=== PATIENT | female | born 1980 | race Caucasian/White ===

== ENCOUNTER 2016-10-27 17:22 | Emergency (ER) | payer BC, OTHER ==
[~2016-10-27] VITALS: Ht 170.2 cm; Wt 90.7 kg
[~2016-10-27 17:22] MED LIST: ACET-1256 PO; ALLO1TAB51 PO; CHOL100010 PO; MERC50TA9 PO; MRC50 PO; MTR600X PO; OXYC5TAB PO; PREN1TAB51 PO; RMCI IV
[2016-10-27 17:26] VITALS: TEMP 37.4; Ht 170.2 cm; Wt 90.7 kg
[2016-10-27] MEDS ORDERED: CEFTRIAXONE SOD INJ 1 GM ADDVIAL IV STA (17:34)
[2016-10-27] MEDS ORDERED: SODIUM CHLORIDE 0.9% 1000ML 1,000 ML IV STA (17:34)
[2016-10-27] MEDS ORDERED: KETOROLAC TROMETHAMINE 30 MG/ML VIAL IV STA (17:34)
[2016-10-27] MEDS ORDERED: ONDANSETRON INJ 2 MG/ML 2 ML VIAL IV STA (17:34)
[2016-10-27 17:48] LABS: BASO % 0.1 %; BASO ABS # 0.01 K/uL (0-0.2); COMPLETE YES; EOS % 0.4 %; HEMATOCRIT 36.5 % (37-47); IG% 0.5 %; LYMPH % 9.7 %; LYMPH ABS # 1.38 K/uL (1.2-3.4); MEAN CELL VOLUME 88.4 fL (80-100); MEAN CORPUSCULAR HEMOGLOBIN 29.5 pg (25-34); MEAN CORPUSCULAR HGB CONC 33.4 g/dl (32-36); MEAN PLATELET VOLUME 9.2 fL (7.4-10.4); MONO % 11.3 %; PLATELET COUNT 251 K/uL (130-400); RED BLOOD COUNT 4.13 M/uL (4.2-5.4); WHITE BLOOD COUNT 14.19 K/uL (4.8-10.8)
[2016-10-27] MEDS ORDERED: MRC50 PO (17:48)
[2016-10-27] MEDS ORDERED: ALLO100T PO (17:48)
[2016-10-27] MEDS ORDERED: MULT-506 PO (17:49)
[2016-10-27 18:01] LABS: URINE APPEARANCE CLEAR (CLEAR); URINE BILIRUBIN NEG (NEG); URINE COLOR YELLOW; URINE EPITHELIAL CELL AUTO 0-5 /lpf (0-5); URINE NITRITE POS (NEG); URINE PH 6.5 (4.5-7.5); URINE SPECIFIC GRAVITY 1.013 (1.000-1.030); UROBILINOGEN NEG (NEG); ZZUR CULT IF INDIC CLEAN CATCH YES
[2016-10-27 18:04] LABS: MANUAL MICROSCOPIC REQUIRED? NO; REVIEW REQ? NO
[2016-10-27 18:10] LABS: BUN/CREATININE RATIO 15.6 (10-20); CALCIUM 8.7 mg/dl (8.5-10.1); CREATININE 0.68 mg/dl (0.60-1.20); POTASSIUM 3.8 mmol/L (3.5-5.1)
--- NOTE | 2016-10-27 18:15 | DIAGNOSTIC IMAGING REPORT ---
CT OF THE ABDOMEN AND PELVIS WITHOUT CONTRAST, STONE PROTOCOL CLINICAL HISTORY: Left flank pain. COMPARISON STUDY: CT of the abdomen and pelvis November 27, 2014. TECHNIQUE: Helical axial images of the abdomen and pelvis were obtained without IV or oral contrast according to renal stone protocol. FINDINGS: Lung bases are clear. There is no biliary ductal dilatation status post cholecystectomy. 2 left renal calculi measure up to 2 mm. There are no ureteral calculi. There is no hydronephrosis or hydroureter. Note is made of moderate wall thickening of the bladder with adjacent infiltration. Evaluation of the abdomen and pelvis is suboptimal on this unenhanced exam. Unenhanced images of the liver, spleen, adrenal glands and pancreas are normal. There is no evidence for a bowel obstruction. There are few prominent ileocolic lymph nodes. 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 IMPRESSION: 1. Punctate left renal calculi. No ureteral calculi or hydronephrosis. 2. Wall thickening of the bladder with adjacent infiltration which suggests cystitis. Electronically signed by: Darryl Cooley M.D. 10/27/2016 6:14 PM Dictated Date/Time: 10/27/2016 6:05 PM
[2016-10-27] MEDS ORDERED: NITROFURANTOIN MONOHYDRATE 100 MG CAP PO STA (18:35)
[2016-10-27] MEDS ORDERED: NITR-5 PO (18:39)
[2016-10-27] MEDS ORDERED: ONDA4TAB10 SL (18:39)
--- NOTE | 2016-10-27 18:40 | EMERGENCY ROOM VISIT NOTE ---
History Report prepared by Lashawn: Kassidy Wild Under the Supervision of: Dr. Miky Monique D.O. First contact with patient: 17:28 Chief Complaint: FLANK PAIN Stated Complaint: LF SIDE PAIN,URGENCY TO URINATE,NAUSEA History of Present Illness The patient is a 36 year old female who presents to the Emergency Room with complaints of an intermittent left flank pain for the past 3 days, which has been constant today. Three days ago she began experiencing increased urinary frequency and urgency. The patient reports a history of kidney stones and states that these symptoms felt similar to her previous stones. She increased her fluid intake to help her symptoms. Starting this morning, the pain worsened and started to radiate to her back. She has been experiencing nausea and had 1 episode of vomiting. She states that vomiting helped to alleviate her pain. She rates her pain as a 5/10 in severity. The patient denies any fever or abnormal vaginal discharge. Her LNMP was two weeks ago. Source of History: patient Onset: three days ago Position: other (left flank) Symptom Intensity: 5/10 Quality: other (radiating) Timing: intermittent, worsening Modifying Factors (Relieving): other (vomiting) Associated Symptoms: + abdominal pain, + back pain, + nausea, + urinary symptoms, + vomiting, No fevers Note: Patient denies any abnormal vaginal discharge. Review of Systems See HPI for pertinent positives & negatives. A total of 10 systems reviewed and were otherwise negative. Past Medical & Surgical Medical Problems: (1) Kidney stone (2) (3) Ulcerative colitis Surgical Problems: (1) H/O section (2) Hx of cholecystectomy Family History FH: HTN (hypertension) FH: diabetes mellitus FH: gallbladder disease Kidney stone Social History Smoking Status: Never Smoker Marital Status: Housing Status: lives with family Occupation Status: employed Current/Historical Medications Scheduled Allopurinol (Zyloprim), 100 MG PO QAM Infliximab (Remicade), 100 MG IV Q8 WEEKS Mercaptopurine (Mercaptopurine), 25 MG PO Q2D IN AM Mercaptopurine (Mercaptopurine), 50 MG PO Q2D IN AM Multivitamin (Multivitamin), 1 TAB PO QAM Nitrofurantoin Monohyd Macrocr (Macrobid), 100 MG PO BID Ondasetron Odt (Zofran Odt), 4 MG SL Q6H Scheduled PRN Acetaminophen (Tylenol), 1,000 MG PO UD PRN for RN Allergies Coded Allergies: Sulfa Antibiotics (Verified Allergy, Severe, ONTIVEROS VIDAL WITH SULFASALAZINE, 10/27/16) Sulfasalazine (Verified Allergy, Severe, ONTIVEROS-VIDAL SYNDROME., 10/27/16 ) Mesalamine (Verified Allergy, Intermediate, FLU LIKE SYMPTOMS/NAUSEA AND VOMITING, 10/27/16) Physical Exam Vital Signs Date Time Temp Pulse Resp B/P Pulse Ox O2 Delivery O2 Flow Rate FiO2 10/27/16 18:55 107 16 112/77 97 Room Air 10/27/16 17:26 37.4 128 18 128/85 96 Room Air Physical Exam CONSTITUTIONAL/VITAL SIGNS: Reviewed / noted above. GENERAL: Non-toxic in appearance. INTEGUMENTARY: Warm, dry, and [place]. HEAD: Normocephalic. EYES: without scleral icterus or trauma. ENT/OROPHARYNX: clear and moist. LYMPHADENOPATHY/NECK: Is supple without lymphadenopathy or meningismus. RESPIRATORY: Lungs clear and equal. CARDIOVASCULAR: Regular rate and rhythm. GI/ABDOMEN: Soft and nontender. No organomegaly or pulsatile mass. No rebound or guarding. Normal bowel sounds. EXTREMITIES: Warm and well perfused. BACK: Left CVA tenderness. NEUROLOGICAL: Intact without focal deficits. PSYCHIATRIC: normal affect. MUSCULOSKELETAL: Normally developed with good muscle tone. Medical Decision & Procedures ER Provider Diagnostic Interpretation: Radiology results as stated below per my review and radiologist interpretation: CT OF THE ABDOMEN AND PELVIS WITHOUT CONTRAST, STONE PROTOCOL CLINICAL HISTORY: Left flank pain. COMPARISON STUDY: CT of the abdomen and pelvis November 27, 2014. TECHNIQUE: Helical axial images of the abdomen and pelvis were obtained without IV or oral contrast according to renal stone protocol. FINDINGS: Lung bases are clear. There is no biliary ductal dilatation status post cholecystectomy. 2 left renal calculi measure up to 2 mm. There are no ureteral calculi. There is no hydronephrosis or hydroureter. Note is made of moderate wall thickening of the bladder with adjacent infiltration. Evaluation of the abdomen and pelvis is suboptimal on this unenhanced exam. Unenhanced images of the liver, spleen, adrenal glands and pancreas are normal. There is no evidence for a bowel obstruction. There are few prominent ileocolic lymph nodes. 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 IMPRESSION: 1. Punctate left renal calculi. No ureteral calculi or hydronephrosis. 2. Wall thickening of the bladder with adjacent infiltration which suggests cystitis. Electronically signed by: Darryl Cooley M.D. 10/27/2016 6:14 PM Dictated Date/Time: 10/27/2016 6:05 PM Laboratory Results 10/27/16 17:40 Red Blood Count 4.13, Mean Corpuscular Volume 88.4, Mean Corpuscular Hemoglobin 29.5, Mean Corpuscular Hemoglobin Concent 33.4, Mean Platelet Volume 9.2, Neutrophils (%) (Auto) 78.0, Lymphocytes (%) (Auto) 9.7, Monocytes (%) (Auto) 11.3, Eosinophils (%) (Auto) 0.4, Basophils (%) (Auto) 0.1, Neutrophils # (Auto ) 11.07, Lymphocytes # (Auto) 1.38, Monocytes # (Auto) 1.60, Eosinophils # (Auto ) 0.06, Basophils # (Auto) 0.01 10/27/16 17:40 Test 10/27/16 17:35 10/27/16 17:40 Urine Color YELLOW Urine Appearance CLEAR (CLEAR) Urine pH 6.5 (4.5-7.5) Urine Specific [place] 1.013 (1.000-1.030) Urine Protein NEG (NEG) Urine Glucose (UA) NEG (NEG) Urine Ketones NEG (NEG) Urine Occult Blood 2+ (NEG) Urine Nitrite POS (NEG) Urine Bilirubin NEG (NEG) Urine Urobilinogen NEG (NEG) Urine Leukocyte Esterase MODERATE (NEG) Urine WBC (Auto) >30 /hpf (0-5) Urine RBC (Auto) 5-10 /hpf (0-4) Urine Hyaline Casts (Auto) 5-10 /lpf (0-5) Urine Epithelial Cells (Auto) 0-5 /lpf (0-5) Urine Bacteria (Auto) 4+ (NEG) White Blood Count 14.19 K/uL (4.8-10.8) Red Blood Count 4.13 M/uL (4.2-5.4) Hemoglobin 12.2 g/dL (12.0-16.0) Hematocrit 36.5 % (37-47) Mean Corpuscular Volume 88.4 fL (80-100) Mean Corpuscular Hemoglobin 29.5 pg (25-34) Mean Corpuscular Hemoglobin Concent 33.4 g/dl (32-36) Platelet Count 251 K/uL (130-400) Mean Platelet Volume 9.2 fL (7.4-10.4) Neutrophils (%) (Auto) 78.0 % Lymphocytes (%) (Auto) 9.7 % Monocytes (%) (Auto) 11.3 % Eosinophils (%) (Auto) 0.4 % Basophils (%) (Auto) 0.1 % Neutrophils # (Auto) 11.07 K/uL (1.4-6.5) Lymphocytes # (Auto) 1.38 K/uL (1.2-3.4) Monocytes # (Auto) 1.60 K/uL (0.11-0.59) Eosinophils # (Auto) 0.06 K/uL (0-0.5) Basophils # (Auto) 0.01 K/uL (0-0.2) RDW Standard Deviation 45.7 fL (36.4-46.3) RDW Coefficient of Variation 14.2 % (11.5-14.5) Immature Granulocyte % (Auto) 0.5 % Immature Granulocyte # (Auto) 0.07 K/uL (0.00-0.02) Anion Gap 9.0 mmol/L (3-11) Est Creatinine Clear Calc Drug Dose 134.8 ml/min Estimated GFR () 132.3 Estimated GFR (Non- 114.1 BUN/Creatinine Ratio 15.6 (10-20) Calcium Level 8.7 mg/dl (8.5-10.1) Total Bilirubin 0.4 mg/dl (0.2-1) Direct Bilirubin 0.1 mg/dl (0-0.2) Aspartate Amino Transf (AST/SGOT) 23 U/L (15-37) Alanine Aminotransferase (ALT/SGPT) 28 U/L (12-78) Alkaline Phosphatase 53 U/L (45-117) Total Protein 8.1 gm/dl (6.4-8.2) Albumin 3.6 gm/dl (3.4-5.0) Lipase 168 U/L (73-393) Laboratory results as stated above per my review. Medications Administered Medications (Trade) Dose Ordered Sig/[place] Route Start Time Stop Time Status Last Admin Dose Admin Sodium Chloride (Nss 1000ml) 1,000 ml @ 999 mls/hr Q1H1M STAT IV 10/27/16 17:34 10/27/16 18:34 DC 10/27/16 17:34 999 MLS/HR Ondansetron HCl (Zofran Inj) 4 mg NOW STAT IV 10/27/16 17:34 10/27/16 17:36 DC 10/27/16 17:43 4 MG Ketorolac Tromethamine (Toradol Inj) 30 mg NOW STAT IV 10/27/16 17:34 10/27/16 17:36 DC 10/27/16 17:43 30 MG Ceftriaxone Sodium (Rocephin Inj) 1 gm NOW STAT IV 10/27/16 17:34 10/27/16 17:36 DC 10/27/16 17:43 1 GM Nitrofurantoin Macrocrystals (Macrobid Cap) 100 mg NOW STAT PO 10/27/16 18:35 10/27/16 18:36 DC 10/27/16 18:46 100 MG ED Course 1731: Previous medical records were reviewed. The patient was evaluated in room B3B. A complete history and physical examination was performed. 1734: Rocephin 1 gm IV, Toradol 30 mg IV, Zofran 4 mg IV, NSS 1000 @ 999 mls/hr IV. 1831: I reassessed the patient at this time. She is feeling better and resting comfortably. I discussed the results and treatment plan with the patient. I answered all pertaining questions that she had. She expressed understanding and verbalized agreement. The patient will be discharged home. 1835: Macrobid 100 mg PO. Medical Decision Differential considered: pancreatitis, hepatitis, or acute cholecystitis, AAA, UTI, pyelonephritis, kidney stones, appendicitis, diverticulitis, shingles, bowel obstruction mesenteric ischemia, intussusception,hernia, ovarian torsion, ruptured ovarian cyst,ectopic , . This is a 36-year-old female who presents to the ED with a chief complaint of left flank pain. The patient's symptoms initially started 3 days ago with frequency and urgency. She developed left flank pain today as well as some nausea and vomited once. The patient's last menstrual periods was 2 weeks ago. She denies any fevers. Her vital signs revealed tachycardia. Physical exam reveals some left CVA tenderness. CT scan reveals findings suggesting cystitis. Urine shows infection. White blood count was 14. CMP was normal. The patient was treated with IV Rocephin, 1 L of normal saline IV, IV Zofran and by mouth Macrobid. She was discharged on Macrobid and Zofran. She was told to return for vomiting or other concerns. Impression Primary Impression: UTI (urinary tract infection) Additional Impression: Pyelonephritis Scribe Attestation The scribe's documentation has been prepared under my direction and personally reviewed by me in its entirety. I confirm that the note above accurately reflects all work, treatment, procedures, and medical decision making performed by me. Departure Information Dispostion Home / Self-Care Prescriptions Nitrofurantoin Monohyd Macrocr (Macrobid) 100 Mg Cap 100 MG PO BID, #14 CAP Prov: Miky Monique D.O. 10/27/16 Ondasetron Odt (ZOFRAN ODT) 4 Mg Tab 4 MG SL Q6H for Nausea, #15 TAB Prov: Miky Monique D.O. 10/27/16 Referrals Eva Barrera D.O. (PCP) Forms HOME CARE DOCUMENTATION FORM, IMPORTANT VISIT INFORMATION Patient Instructions [facility], Pyelonephritis - [facility] Additional Instructions Macrobid as prescribed. Zofran: Allow one tablet to dissolve under the tongue every 6 hours as needed for nausea or vomiting. Follow-up with your doctor for further care and evaluation in 1-2 days. Return to the emergency department for worsening or new symptoms or any concerns. You have been examined and treated today on an emergency basis only. This is not a substitute for, or an effort to provide, complete comprehensive medical care. It is impossible to recognize and treat all injuries or illnesses in a single emergency department visit. It is therefore important that you follow up closely with your doctor. Call as soon as possible for an appointment. Problem Qualifiers Primary Impression: UTI (urinary tract infection) Urinary tract infection type: site unspecified Hematuria presence: with hematuria Qualified Codes: N39.0 - Urinary tract infection, site not specified ; R31.9 - Hematuria, unspecified
[2016-10-27 18:55] VITALS: BP 112/77; PULSE 107; O2SAT 97
== END 2016-10-27 18:56 | disposition home or self-care (01) ==
LOC: C.EDB 17:22
DX: N39.0 Urinary tract infection, site not specified (principal); Z87.442 Personal history of urinary calculi; Z90.49 Acquired absence of other specified parts of digestive tract; Z82.49 Family history of ischemic heart disease and other diseases of the circulatory system; Z83.3 Family history of diabetes mellitus; Z79.899 Other long term (current) drug therapy

== ENCOUNTER → 2017-01-14 | Outpatient (CLI) | payer BC ==
[~2017-01-14] MED LIST changes: +ALLO100T PO; -ALLO1TAB51 PO; -CHOL100010 PO; -MERC50TA9 PO; -MTR600X PO; +MULT-506 PO; +NITR-5 PO; +ONDA4TAB10 SL; -OXYC5TAB PO; -PREN1TAB51 PO
--- NOTE | 2017-01-14 08:19 | DIAGNOSTIC IMAGING REPORT ---
THYROID ULTRASOUND HISTORY: Nodule LOCALIZED Swelling, mass AND Lump, neck COMPARISON: None. FINDINGS: 1.5 x 1.0 cm mixed echogenicity partially calcified nodule posterior to the right ear. This is nonspecific in appearance. IMPRESSION: Partially calcified nodule posterior to the right ear measuring 1.5 x 1.0 cm. The appearance is nonspecific. Electronically signed by: Jay Dailey M.D. 01/14/2017 8:17 AM Dictated Date/Time: 01/14/2017 8:16 AM
== END | disposition home or self-care (01) ==
LOC: C.ULTR 07:32
PROVIDERS: ATTEND Family Medicine
DX: R22.1 Localized swelling, mass and lump, neck (principal)